=== PATIENT | female | born 1955 | race Caucasian/White ===

== ENCOUNTER 2020-02-19 09:25 | Observation (INO) | payer MEDICARE, BC ==
[~2020-02-19] VITALS: Ht 154.9 cm; Wt 48.2 kg
[~2020-02-19 09:25] MED LIST: AMOX1TAB11 PO; ASPI-482 PO; CETI10CA PO; CLOP75TA57 PO; INSU100V8 SQ; MYCO500V IV; TACR1CAP5 PO
[2020-02-19] MEDS ORDERED: IV NORMAL SALINE 1,000ML 1,000 ML IV ONE ×2 (09:45→12:15)
[2020-02-19 09:55] LABS: BASO # 0.1 x10^3/uL (0.0-0.2); BASO % 1 % (0-3); EOS # 0.2 x10^3/uL (0.0-0.7); EOS % 3 % (0-3); HEMATOCRIT 31.7 % (36.0-47.0); HEMOGLOBIN 10.4 g/dL (12.0-15.5); LYMPH # 0.7 x10^3/uL (1.0-4.8); LYMPH % 8 % (24-48); MEAN CORPUSCULAR HEMOGLOBIN 28 pg (25-35); MEAN CORPUSCULAR HGB CONC 33 g/dL (31-37); MEAN CORPUSCULAR VOLUME 86 fL (79-100); MONO % 12 % (0-9); NEUT # 6.8 x10^3uL (1.8-7.7); NEUT % 78 % (31-73); PLATELET COUNT 108 x10^3/uL (140-400); RED BLOOD COUNT 3.71 x10^6/uL (3.50-5.40); RED CELL DISTRIBUTION WIDTH 15.3 % (11.5-14.5); WHITE BLOOD COUNT 8.7 x10^3/uL (4.0-11.0)
[2020-02-19 10:05] LABS: ANION GAP 9 (6-14); BLOOD UREA NITROGEN 45 mg/dL (7-20); BUN/CREATININE RATIO 23 (6-20); CALCIUM 9.9 mg/dL (8.5-10.1); CARBON DIOXIDE 32 mmol/L (21-32); CHLORIDE 91 mmol/L (98-107); GLUCOSE 191 mg/dL (70-99); POTASSIUM 3.5 mmol/L (3.5-5.1); SODIUM 132 mmol/L (136-145)
[2020-02-19 10:21] LABS: ALBUMIN/GLOBULIN RATIO 0.7 (1.0-1.7); ALK PHOS 181 U/L (46-116); ALT (SGPT) 40 U/L (14-59); AST (SGOT) 42 U/L (15-37); MAGNESIUM 2.6 mg/dL (1.8-2.4); TOTAL BILIRUBIN 0.7 mg/dL (0.2-1.0); TOTAL PROTEIN 7.2 g/dL (6.4-8.2)
--- NOTE | 2020-02-19 10:23 | PHYS DOC ---
Past History Past Medical History: CAD, Diabetes, Other Past Medical History Limited secondary to altered mental status Past Surgical History: Coronary Bypass Surgery (triple), Tubal ligation, Other Additional Past Surgical Histo: Liver transplant, cardiac stents Past Surgical History Limited secondary to altered mental status Smoking: Non-smoker Alcohol Use: None Drug Use: None Social History Limited secondary to altered mental status General Adult EDM: Chief Complaint: BLOOD SUGAR PROBLEM HPI: HPI: 65-year-old female presents via EMS with report of altered mental status. EMS reports symptoms started last night when patient's blood sugar had been greater than 600s. Family reportedly was giving insulin throughout the night. Patient became more confused this morning and EMS was called. EMS reports Accu-Chek in the 400s. Patient also noted to be hypoxic upon EMS arrival down to 88% which improved after supplemental O2 placed at 4 L via nasal cannula. EMS denies known trauma. Family reports patient with history of liver transplant in 2001 and significant cardiac history with triple bypass surgery and prior 9 cardiac stents. Family reports patient has intermittent confusion for the last 4 to 5 months and has lost over 40 pounds during this period of time. Patient is scheduled to follow at for a lower GI scope on 02/27/2020. History of present illness limited secondary to altered mental status. Review of Systems: Review of Systems: Review of systems limited secondary to altered mental status. Current Medications: Current Meds: Current Medications Medications (Trade) Dose Ordered Sig/Melissa Start Time Stop Time Status Last Admin Dose Admin Sodium Chloride 1,000 ml @ 1,000 mls/hr 1X ONCE 02/19/20 09:45 02/19/20 10:44 02/19/20 09:45 1,000 MLS/HR Allergies: Allergies: Allergies Coded Allergies Type Severity Reaction Last Updated Verified No Known Drug Allergies 06/25/13 No Physical Exam: PE: Constitutional: Petite, obtunded HENT: Normocephalic, atraumatic Eyes: PERRL, conjunctiva normal, no discharge Neck: Supple, no stridor Lungs & Thorax: No respiratory distress, equal chest rise and fall Abdomen: Soft, no tenderness, no guarding/rebound tenderness/distention Skin: Warm, dry, no erythema, no rash Extremities: No tenderness, ROM intact, no edema Neurologic: Obtunded, GCS 9 (eye 2, verbal 2, motor 5) Psychologic: Limited, judgment abnormal Current Patient Data: Labs: Laboratory Tests Test 02/19/20 09:32 White Blood Count 8.7 x10^3/uL (4.0-11.0) Red Blood Count 3.71 x10^6/uL (3.50-5.40) Hemoglobin 10.4 g/dL (12.0-15.5) L Hematocrit 31.7 % (36.0-47.0) L Mean Corpuscular Volume 86 fL (79-100) Mean Corpuscular Hemoglobin 28 pg (25-35) Mean Corpuscular Hemoglobin Concent 33 g/dL (31-37) Red Cell Distribution Width 15.3 % (11.5-14.5) H Platelet Count 108 x10^3/uL (140-400) L Neutrophils (%) (Auto) 78 % (31-73) H Lymphocytes (%) (Auto) 8 % (24-48) L Monocytes (%) (Auto) 12 % (0-9) H Eosinophils (%) (Auto) 3 % (0-3) Basophils (%) (Auto) 1 % (0-3) Neutrophils # (Auto) 6.8 x10^3uL (1.8-7.7) Lymphocytes # (Auto) 0.7 x10^3/uL (1.0-4.8) L Monocytes # (Auto) 1.0 x10^3/uL (0.0-1.1) Eosinophils # (Auto) 0.2 x10^3/uL (0.0-0.7) Basophils # (Auto) 0.1 x10^3/uL (0.0-0.2) Sodium Level 132 mmol/L (136-145) L Potassium Level 3.5 mmol/L (3.5-5.1) Chloride Level 91 mmol/L (98-107) L Carbon Dioxide Level 32 mmol/L (21-32) Anion Gap 9 (6-14) Blood Urea Nitrogen 45 mg/dL (7-20) H Creatinine 2.0 mg/dL (0.6-1.0) H Estimated GFR (Cockcroft-Gault) 25.0 BUN/Creatinine Ratio 23 (6-20) H Glucose Level 191 mg/dL (70-99) H Lactic Acid Level 3.1 mmol/L (0.4-2.0) H Calcium Level 9.9 mg/dL (8.5-10.1) Magnesium Level Pending Total Bilirubin Pending Aspartate Amino Transferase (AST) Pending Alanine Aminotransferase (ALT) Pending Alkaline Phosphatase Pending Creatine Kinase Pending Creatine Kinase MB (Mass) Pending Creatine Kinase MB Relative Index Pending BK-Kzc-U-Type Natriuretic Peptide Pending Total Protein Pending Albumin Pending Albumin/Globulin Ratio Pending EKG: EKG: @1016 NSR at 61bpm, nonspecific t wave inversion I and aVL and V2-V3, slight ST elevation III and aVF, QRS 80ms, QT/QTc 462/467ms, no prior EKG for comparison per [facility] Radiology/Procedures: Radiology/Procedures: PROCEDURE: CT HEAD AND CERVICAL SPINE WO CT HEAD AND CERVICAL SPINE WO Date: 02/19/2020 9:34 AM Clinical Indication: Reason: altered mental status / Spl. Instructions: / History: Comparison: CT head 05/15/2012. Technique: 5 mm axial tomographic images were obtained of the head without contrast. These were viewed on brain and bone windows. CT imaging of the cervical spine was performed without contrast. Coronal and sagittal reformatted images were performed. One or more of the following dose reduction techniques were utilized: Automated exposure control (AEC), Adjustment of mA and/or kV according to patient size, Use of iterative reconstruction technique such as ASiR, CT scan done according to ALARA and image gently/image wisely HEAD FINDINGS: The brain parenchyma is normal in attenuation. No intra- or extra-axial mass or fluid collection. No acute hemorrhage. The ventricles are normal in size, shape, and morphology. The sosa-white matter junction is normal. The basilar cisterns are patent. The visualized paranasal sinuses are normal. The visualized portions of the orbits and globes are normal. The mastoid air cells are clear. No aggressive osseous lesion or fracture. CERVICAL SPINE FINDINGS: The cervical spine is normally aligned. No acute fracture. No aggressive lytic or blastic osseous lesion. Mild multilevel degenerative disc height loss. No high-grade spinal canal stenosis or neural foraminal narrowing. The thyroid gland is normal. No cervical lymphadenopathy. The visualized aerodigestive tract is unremarkable. The visualized lung apices are clear. IMPRESSION: 1. No acute intracranial process. 2. No acute osseous abnormality of the cervical spine. Electronically signed by: Tacos Monroy MD (02/19/2020 10:43 AM) [id number] PROCEDURE: CT CHEST WO CONTRAST CT CHEST WO CONTRAST INDICATION: Reason: hypoxia, weakness / Spl. Instructions: / History: . COMPARISON STUDY: None. TECHNIQUE: Unenhanced axial images were obtained through the lungs and upper abdomen. Coronal and sagittal multiplanar reconstructions were also obtained. PQRS compliance statement: One or more of the following individualized dose reduction techniques were utilized for this examination: 1. Automated exposure control 2. Adjustment of the mA and/or kV according to patient size 3. Use of iterative reconstruction technique FINDINGS: Lungs and Airways: No pulmonary mass or consolidation. Normal central airways. Pleura: The pleural spaces are normal. Heart and Mediastinum: The visualized thyroid gland is normal in size and attenuation. No axillary or supraclavicular lymphadenopathy. No mediastinal, hilar or retrocrural lymphadenopathy. Normal cardiac size. Extensive coronary artery atherosclerotic disease. CABG. Mitral annular calcification. Atherosclerosis of the thoracic aorta and branch vessels. Abdomen: The visualized abdominal organs demonstrate no abnormality. Bones and Soft Tissues: Degenerative changes of the spine. IMPRESSION: No pulmonary mass or consolidation. No thoracic lymphadenopathy. Electronically signed by: Tacos Monroy MD (02/19/2020 11:12 AM) [id number] Course & Med Decision Making: Course & Med Decision Making Pertinent Labs and Imaging studies reviewed. (See chart for details) Patient presents via EMS with altered mental status and history of hyperglycemia. Patient appears obtunded. Patient will arouse to painful stimuli then then immediately falls back to sleep. EMS reported hypoxia on their arrival which improved with supplemental O2. Patient also noted to be hypotensive. Concern for possible sepsis. IV fluid hydration provided. Blood pressure improved. Labs obtained and posted to chart. WBC and lactic acid within normal limits. SIRS criteria not met. EKG stable. Troponin within normal limits. Patient with history of liver transplant. Ammonia level within normal limits. D-dimer within normal limits. BUN/Creat elevated. CT head/cervical spine without acute process. CT chest without acute process. Cannot fully exclude COVID-19. COVID-[address] COVID-19 testing pending. Patient requiring admission for further evaluation and treatment. Discussed with Dr. Corbett (hospitalist) who is in agreement with admission. COVID-19 CRITERIA: The patient was evaluated during the global COVID-19 pandemic, and that diagnosis was suspected/considered upon their initial presentation. Their evaluation, treatment and testing was consistent with current guidelines for patients who present with complaints or symptoms that may be related to COVID-19. Ismael Disclaimer: Dragfidel Disclaimer: This electronic medical record was generated, in whole or in part, using a voice recognition dictation system. Departure Departure: Impression: Primary Impression: Altered mental status Qualified Codes: R41.82 - Altered mental status, unspecified Additional Impressions: Suspected 2019 novel coronavirus infection Lactic acidosis Acute renal insufficiency Hypotension Qualified Codes: I95.9 - Hypotension, unspecified Yeast cystitis Hypoxia Disposition: ADMITTED INPT THIS HOSP (ICU) Admitting Physician: Edgardo Corbett Condition: GUARDED Referrals: JUD SILVA MD (PCP) COVID-19 Assessment COVID-19 Patient Risks: Age 65 or older: Yes Sign of co-morbidity: Yes Exp to person + for COVID: No Exp to PUI: No Travel from affected area: No Lower respiratory symptoms: No Fever: No Other: Yes PPE Use: Full PPE with N95 mask or PAPR: Yes Critical Care Time Critical care time was 30 minutes which includes time at bedside, spent in discussion of patient's care with specialists and/or family members, with interpretation of laboratory and/or radiological studies and is exclusive of procedures. WINDY SINCLAIR DO Feb 19, 2020 10:23
--- NOTE | 2020-02-19 10:46 | RAD ---
CT HEAD AND CERVICAL SPINE WO Date: 02/19/2020 9:34 AM Clinical Indication: Reason: altered mental status / Spl. Instructions: / History: Comparison: CT head 05/15/2012. Technique: 5 mm axial tomographic images were obtained of the head without contrast. These were viewed on brain and bone windows. CT imaging of the cervical spine was performed without contrast. Coronal and sagittal reformatted images were performed. One or more of the following dose reduction techniques were utilized: Automated exposure control (AEC), Adjustment of mA and/or kV according to patient size, Use of iterative reconstruction technique such as ASiR, CT scan done according to ALARA and image gently/image wisely HEAD FINDINGS: The brain parenchyma is normal in attenuation. No intra- or extra-axial mass or fluid collection. No acute hemorrhage. The ventricles are normal in size, shape, and morphology. The sosa-white matter junction is normal. The basilar cisterns are patent. The visualized paranasal sinuses are normal. The visualized portions of the orbits and globes are normal. The mastoid air cells are clear. No aggressive osseous lesion or fracture. CERVICAL SPINE FINDINGS: The cervical spine is normally aligned. No acute fracture. No aggressive lytic or blastic osseous lesion. Mild multilevel degenerative disc height loss. No high-grade spinal canal stenosis or neural foraminal narrowing. The thyroid gland is normal. No cervical lymphadenopathy. The visualized aerodigestive tract is unremarkable. The visualized lung apices are clear. IMPRESSION: 1. No acute intracranial process. 2. No acute osseous abnormality of the cervical spine. Electronically signed by: Tacos Monroy MD (02/19/2020 10:43 AM) [id number]
--- NOTE | 2020-02-19 11:15 | RAD ---
CT CHEST WO CONTRAST INDICATION: Reason: hypoxia, weakness / Spl. Instructions: / History: . COMPARISON STUDY: None. TECHNIQUE: Unenhanced axial images were obtained through the lungs and upper abdomen. Coronal and sagittal multiplanar reconstructions were also obtained. PQRS compliance statement: One or more of the following individualized dose reduction techniques were utilized for this examination: 1. Automated exposure control 2. Adjustment of the mA and/or kV according to patient size 3. Use of iterative reconstruction technique FINDINGS: Lungs and Airways: No pulmonary mass or consolidation. Normal central airways. Pleura: The pleural spaces are normal. Heart and Mediastinum: The visualized thyroid gland is normal in size and attenuation. No axillary or supraclavicular lymphadenopathy. No mediastinal, hilar or retrocrural lymphadenopathy. Normal cardiac size. Extensive coronary artery atherosclerotic disease. CABG. Mitral annular calcification. Atherosclerosis of the thoracic aorta and branch vessels. Abdomen: The visualized abdominal organs demonstrate no abnormality. Bones and Soft Tissues: Degenerative changes of the spine. IMPRESSION: No pulmonary mass or consolidation. No thoracic lymphadenopathy. Electronically signed by: Tacos Monroy MD (02/19/2020 11:12 AM) [id number]
[2020-02-19 11:18] LABS: AMPHETAMINE/METHAMPHETAMINE NEG (NEG); BARBITURATES NEG (NEG); BENZODIAZEPINES NEG (NEG); CANNABINOIDS NEG (NEG); COCAINE NEG (NEG); METHADONE NEG (NEG); OPIATES NEG (NEG); PHENCYCLIDINE NEG (NEG)
[2020-02-19 11:34] LABS: BILIRUBIN,URINE NEG (NEG); CLARITY,URINE HAZY; COLOR,URINE YELLOW; GLUCOSE,URINE >=1000 mg/dL (NEG)
[2020-02-19 11:35] LABS: BACTERIA,URINE FEW /HPF (0-FEW); NITRITE,URINE NEG (NEG); SQUAMOUS EPITHELIAL CELL,UR FEW /LPF; UROBILINOGEN,URINE 0.2 mg/dL (0.2 mg/dL)
[2020-02-19 11:37] LABS: YEAST,URINE PRESENT /HPF
--- NOTE | 2020-02-19 11:53 | EKG ---
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
[2020-02-19] MEDS ORDERED: FLUCONAZOLE 100 MG TABLET. PO ONE ×2 (12:00→21:30)
[2020-02-19] MEDS ORDERED: ONDANSETRON PF 4 MG/2 ML VIAL. IVP PRN (12:15)
[2020-02-19] MEDS ORDERED: DEXTROSE 50% 25 GM / 50ML DISP.SYRIN. IV PRN (12:15)
[2020-02-19 20:05] VITALS: BP 92/63
--- NOTE | 2020-02-19 20:05 | NUR ---
Pt was admitted from ER to ICU bed 3 via gurney, accompanied by EMS and nursing staff. Pt pulled over from gurney to bed x3 assist. Pt turned and complete skin assessment completed, skin intact and no issues noted. Pt here for AMS, high lactic, RI, and pending Covid. Admission assessment completed. Pt is A&Ox3 but can be forgetful. Pt lives at home with (Matt) and he notes that pt has had an increase in AMS and high blood sugars (in the 600's). Pt is a type 1 diabetic and takes both short and long acting insulin but admits to not taking it the last few days. Pt has a GI scope scheduled at on 02/26 r/t recent weight lose. Plavix and SCDs for VTE. Pt wants flu vaccine but wants Covid results back before receiving. PT/OT, Dietary and CM consulted. POC reviewed with pt and understanding verbalized. - Matt called to go over health history and home medications, will need to call [facility] in morning to clarify medications because they contradicted each other on dose and frequency. Pt was given written information regarding hospital policies, unit procedures and contact persons. Valuables were checked and left at bedside. Bed alarm on.
[2020-02-19 21:00] VITALS: BP 132/56
[2020-02-19] MEDS: INSULIN LISPRO 300 UNITS/3 ML VIAL. SQ SCH (21:29)
[2020-02-19 22:36] VITALS: BP 136/56
[2020-02-19 23:00] VITALS: BP 150/70
[2020-02-20] VITALS (11 sets, daily range): BP systolic 121–160; BP diastolic 49–74
--- NOTE | 2020-02-20 05:10 | NUR ---
Pt doing much better this AM, slept good during night. Pt woke up with "clearer head" and feels that she is able to go home later today. Pt answering questions more appropriately but still use of all of her home medications. Pts stated that her blood sugars normally are in the mid-to upper 250's, which is what she has been running on our checks. Pt sat up on side of bed, watched TV while snacking on applesauce & crackers independently. Pt now on room air, O2 sats >94%. Tolerated AM labs. Hopeful for DC home later today.
[2020-02-20 06:20] LABS: BASO % 1 % (0-3); EOS # 0.2 x10^3/uL (0.0-0.7); EOS % 2 % (0-3); HEMATOCRIT 34.8 % (36.0-47.0); HEMOGLOBIN 11.3 g/dL (12.0-15.5); LYMPH # 0.8 x10^3/uL (1.0-4.8); LYMPH % 9 % (24-48); MEAN CORPUSCULAR HEMOGLOBIN 28 pg (25-35); MEAN CORPUSCULAR HGB CONC 33 g/dL (31-37); MEAN CORPUSCULAR VOLUME 87 fL (79-100); MONO # 0.5 x10^3/uL (0.0-1.1); MONO % 5 % (0-9); NEUT # 7.5 x10^3uL (1.8-7.7); NEUT % 84 % (31-73); PLATELET COUNT 128 x10^3/uL (140-400); RED BLOOD COUNT 3.99 x10^6/uL (3.50-5.40); RED CELL DISTRIBUTION WIDTH 16.1 % (11.5-14.5)
[2020-02-20 06:45] LABS: ALBUMIN 2.9 g/dL (3.4-5.0); ALBUMIN/GLOBULIN RATIO 0.7 (1.0-1.7); CALCIUM 9.1 mg/dL (8.5-10.1); CREATININE 1.9 mg/dL (0.6-1.0); GFR 26.5; MAGNESIUM 2.6 mg/dL (1.8-2.4); TOTAL BILIRUBIN 0.9 mg/dL (0.2-1.0); TOTAL PROTEIN 7.1 g/dL (6.4-8.2)
[2020-02-20] MEDS: INSULIN LISPRO 300 UNITS/3 ML VIAL. SQ SCH ×2 (09:15→12:14)
[2020-02-20] MEDS ORDERED: INSU100V31 SQ (09:57)
[2020-02-20] MEDS ORDERED: FURO40TA4 PO (09:57)
[2020-02-20] MEDS ORDERED: ERGO500027 PO (09:57)
[2020-02-20] MEDS ORDERED: METO5TAB55 PO (09:57)
[2020-02-20] MEDS ORDERED: DULO30CA2 PO (09:57)
[2020-02-20] MEDS ORDERED: PANT40TA3 PO (09:57)
[2020-02-20] MEDS ORDERED: ONDA4TAB12 PO (09:57)
[2020-02-20] MEDS ORDERED: TIZA4TAB8 PO (09:57)
[2020-02-20] MEDS ORDERED: PYRI50CA PO (09:57)
[2020-02-20] MEDS ORDERED: INSU100I32 SQ (09:57)
[2020-02-20] MEDS ORDERED: DOXE10CA PO (09:57)
[2020-02-20] MEDS ORDERED: PROP10TA PO (09:57)
[2020-02-20] MEDS ORDERED: LEVO88TA4 PO (09:57)
[2020-02-20] MEDS ORDERED: PRAV40TA2 PO (09:57)
[2020-02-20] MEDS ORDERED: CLOP75TA57 PO (10:39)
[2020-02-20] MEDS ORDERED: TACR1CAP5 PO (10:57)
--- NOTE | 2020-02-20 11:54 | HP ---
ADMIT DATE: 02/19/2020 ATTENDING PHYSICIAN: Dr. Mosquera CHIEF COMPLAINT: Altered mentation. HISTORY OF PRESENT ILLNESS: The patient is a 65-year-old female admitted from the ED, she was brought in by EMS personnel and her who stays with her reported she has been sick for the last 3 days. She is diabetic and she has a liver transplant. She has not been taking her insulin, her blood sugar is greater than 600. She was given some insulin throughout the night trying to play catch-up. Oxygen saturation was diminished. She had altered mentation, most likely on the basis of hepatic encephalopathy. In talking with the pharmacy, she was supposed to be taking Prograf 1.5 mg twice a day. Unfortunately, she has not got this filled the refill since 09/2019. I called her . He states that he does not fill her medication. She tells him that she has been taking her rejection meds. In any event, she was admitted for observation with a tentative diagnosis of hepatic encephalopathy. She has no recent COVID exposure. When I saw her the next morning, she was very alert. She gave a succinct history. She was asymptomatic and feeling better. PAST MEDICAL HISTORY: Significant for orthotopic liver transplant in 2001 in [place] at the [facility]. She had underlying diagnosis of primary biliary cirrhosis. She had recent temporal artery biopsy for temporal arteritis that has been ruled out. She has type 2 diabetes and hypothyroidism. She also has an extensive history of coronary artery disease with multiple stents and cardiac bypass surgery. She has had a tubal ligation. CURRENT MEDICATIONS: Include regular and a long-acting insulin, Rocaltrol, Zyrtec, vitamin B12, Sinequan at bedtime, Cymbalta, vitamin D2, estrogens, Lasix, Imdur, Synthroid 88 mcg daily, Bactroban, nitroglycerin, ondansetron, Protonix, Lyrica, Pravachol, B6, Prograf 1.5 b.i.d. and Zanaflex 2 mg every 6 hours as needed, Ventolin inhaler, Xifaxan 550 b.i.d. ALLERGIES: She has no known drug allergies. SOCIAL HISTORY: She is a nonsmoker, nondrinker at this time. FAMILY HISTORY: Unobtainable. REVIEW OF SYSTEMS: Significant for weight loss. She has had chronic nausea, poor appetite, 40-pound weight loss. She is scheduled to have upper and lower endoscopies through her transplant physician. Accordingly, she states that she has been taking her Prograf, but unfortunately we cannot verify this given the records from [facility] and her . He found a bottle of Prograf at home, but that was dated 2018. Continuing all other systems reviewed and turned to be negative. PHYSICAL EXAMINATION: VITAL SIGNS: By the time I saw her the next day, she was quite alert. She was up in a chair. She ate some breakfast. INITIAL VITAL SIGNS: Showed a blood pressure 130/57 mmHg, pulse 86 and regular, temperature 98.2 degrees Fahrenheit, oxygen saturation 98% on room air. HEENT: Head is without trauma. Pupils are reactive. I do not appreciate any scleral icterus. NECK: Supple. No thyromegaly. No stridor. LUNGS: Otherwise clear. CARDIOVASCULAR: Showed regular heart tones. No gallops. ABDOMEN: Soft, nontender, no organomegaly. Bowel sounds were hypoactive. EXTREMITIES: Showed no cyanosis or edema. NEUROLOGIC: She is alert. She gave succinct history. We had a normal conversation. There is no slurred speech. She appears informed. SKIN: Otherwise, warm and dry. LABORATORY STUDIES: Hemoglobin 11.3 g/dL, white count 9000. Electrolytes within normal range. Creatinine is 1.9 mg/dL. Her tells me that her baseline is between 2 and 2.5 mg/dL. IMAGING STUDIES: The obligatory CT of the head, cervical spine films showed no acute strokes, bleeds or fractures. CT of the chest showed no evidence of pneumonia. Heart size is within range. No acute infiltrates identified. ASSESSMENT: 1. A 65-year-old female with hepatic encephalopathy. 2. Questionable compliance of antirejection meds. 3. Known coronary artery disease. 4. Type 2 diabetes with poorly controlled blood sugar. 5. Noncompliance of insulin. 6. Probable polypharmacy. 7. History of orthotopic liver transplant in 2001 due to primary biliary cirrhosis. PLAN: 1. Observation status. 2. Insulin has been restarted. 3. Diet as tolerated. 4. We should continue her home meds including her Prograf. RADHA MOSQUERA MD DR: RED/aditi JOB#: [id number] / [id number]
--- NOTE | 2020-02-20 12:20 | DS ---
DATE OF DISCHARGE: 02/20/2020 ATTENDING PHYSICIAN: Dr. Mosquera FINAL DISCHARGE DIAGNOSES: 1. Probable hepatic encephalopathy, resolved. 2. Orthotopic liver transplant in 2001 for underlying primary biliary cirrhosis. 3. Known coronary artery disease with coronary artery bypass grafting and multiple cardiac stents. 4. Type 2 diabetes with poorly controlled sugars. 5. Altered mentation due to hepatic encephalopathy. 6. Questionable compliance of meds. 7. Hypoxemia, resolved. 8. History of weight loss in process of evaluation. 9. Chronic kidney disease, stage 3. HISTORY AND PHYSICAL: This is a 65-year-old female who had orthotopic liver transplant in 2001 for primary biliary cirrhosis. She was supposed to be taking her Prograf. Possible compliance pharmacy states that she has not had her meds filled in several months. She had altered mentation. According to the , this has been several episodes which usually resolves spontaneously. I noticed she had been on Xifaxan as part of her medications. She is not on any lactulose. The patient had a blood sugar over 600. She was admitted with uncontrolled diabetes, altered mentation due to hepatic encephalopathy. PHYSICAL EXAMINATION: Please see the dictated note. PERTINENT LABORATORY AND X-RAY STUDIES: She had the obligatory COVID swab, which is pending. She had no symptoms whatsoever. Her chest x-rays and CT scan of the chest was clear. CT of the head showed no acute changes. Hemoglobin was 11.3 grams, white count 9000. Chemistry panel showed improvement of her creatinine down to 1.9 mg/dL. Sodium 132, potassium 4.0 mEq. Urine drug screen was negative. Urinalysis is unremarkable. COURSE IN THE HOSPITAL: The patient was admitted. She was started on some of her home meds. She woke up, she was alert and we had a succinct conversation. Her vital signs were fine. She had no respiratory symptoms. I felt this is reasonable to go home. I talked with the regarding her medications. I did give her a script for Prograf 1 mg b.i.d. She is scheduled to have a panendoscopy through [facility] scheduled for 02/27/2020. She should proceed and complete the evaluation. Therefore, on the next hospital day, she was alert. Vital signs are stable. She is discharged home. She should continue her Prograf 1 mg b.i.d., aspirin 81 mg daily, Plavix 75 mg daily, Doxepin 10 mg at bedtime, Cymbalta 30 mg daily, Lasix 40 mg p.o. daily, insulin Lantus and regular as scheduled, Synthroid 88 mcg daily, Reglan p.r.n., ondansetron p.r.n., Protonix 40 mg b.i.d., pravastatin 40 mg daily, propranolol 10 mg b.i.d., vitamin B6 and finally Prograf 1 mg b.i.d. For now, I have asked her to hold Zanaflex due to her altered mentation history. She will follow up with her regular PCP as well as her liver specialist at [facility]. She was discharged then from our hospital in stable condition with explicit instructions and followup care. RADHA MOSQUERA MD DR: RED/aditi JOB#: [id number] / [id number] Bárbara Hobson MD
--- NOTE | 2020-02-20 13:00 | NUR ---
Patient provided discharge education including medication compliance, follow up appointments, and disease process. Patient expressed comprehension. Bourne catheter and PIVs removed, patient tolerated procedure well. Patient escorted to spouse's vehicle.
[2020-02-21] MEDS ORDERED: FLU VACC QS 2020-21(6MOS+)/PF 0.5 ML SYRINGE. VAX IM ONE (09:00)
--- NOTE | 2020-02-22 14:06 | NUR ---
IP: attempt to notify patient of COVID result, left message to call back.
--- NOTE | 2020-02-22 14:09 | NUR ---
IP: notified patient of COVID result.
== END 2020-02-20 13:10 | disposition home or self-care (01) ==
LOC: ER 09:25 → ICU 19:00 → INTOOBSV 19:00
PROVIDERS: ADMIT Internal Medicine; ATTEND Internal Medicine
DX: K72.90 Hepatic failure, unspecified without coma (principal); Z20.828 Contact with and (suspected) exposure to other viral communicable diseases; K74.3 Primary biliary cirrhosis; B37.41 Candidal cystitis and urethritis; I95.9 Hypotension, unspecified; R41.82 Altered mental status, unspecified; I25.10 Atherosclerotic heart disease of native coronary artery without angina pectoris; E11.22 Type 2 diabetes mellitus with diabetic chronic kidney disease; N18.30 Chronic kidney disease, stage 3 unspecified; E11.65 Type 2 diabetes mellitus with hyperglycemia; R09.02 Hypoxemia; E03.9 Hypothyroidism, unspecified; E87.2 Acidosis; Z91.19 Patient's noncompliance with other medical treatment and regimen; Z79.899 Other long term (current) drug therapy; Z94.4 Liver transplant status; Z95.5 Presence of coronary angioplasty implant and graft; Z95.1 Presence of aortocoronary bypass graft; Z98.51 Tubal ligation status; Z79.82 Long term (current) use of aspirin; Z79.02 Long term (current) use of antithrombotics/antiplatelets; Z79.890 Hormone replacement therapy
CPT/HCPCS: 36415; 70450; 71250; 72125; 80053; 80307; 81001; 82140; 82553; 82947; 83605; 83735; 83880; 84484; 85025; 85379; 85610; 85730; 87040; 93005; 96361; 96374; 97166; 97530; 99291; G0378; J1815; J2405; J7030; U0003; 96372; G0379

== ENCOUNTER 2020-03-25 15:04 | Emergency (ER) | payer MEDICARE, BC ==
[~2020-03-25] VITALS: Ht 154.9 cm; Wt 49.3 kg
[~2020-03-25 15:04] MED LIST changes: +DOXE10CA PO; +DULO30CA2 PO; +ERGO500027 PO; +FURO40TA4 PO; +INSU100I32 SQ; +INSU100V31 SQ; +LEVO88TA4 PO; +METO5TAB55 PO; +ONDA4TAB12 PO; +PANT40TA3 PO; +PRAV40TA2 PO; +PROP10TA PO; +PYRI50CA PO; +TIZA4TAB8 PO
--- NOTE | 2020-03-25 16:47 | PHYS DOC ---
Past History Past Medical History: CAD, Diabetes, Other Past Surgical History: Coronary Bypass Surgery, Tubal ligation, Other Additional Past Surgical Histo: Liver transplant, cardiac stents Smoking: Non-smoker Alcohol Use: None Drug Use: None General Adult EDM: Chief Complaint: MECHANICAL FALL HPI: HPI: Patient is a65 year old female who presents to ED with recent fall. Patient states that she got up at 2 am to go to the bathroom when she fell and hit her head. Patient denies LOC. Patient has abrasion and bruising to left anterior forehead. Patient fell again at 6 am and hurt her left ankle. Patient states "My legs get shaky and my legs go out from under me".Patient has been evaluated by PCP for this complaint without unknown cause.Denies dizziness. Patient takes ASA daily. History of DM, CAD, CABG. Review of Systems: Review of Systems: Constitutional: Denies fever or chills Eyes: Denies change in visual acuity HENT: Denies nasal congestion or sore throat, denies headache Respiratory: Denies cough or shortness of breath Cardiovascular: Denies chest pain or edema GI: Denies abdominal pain, nausea, vomiting, bloody stools or diarrhea : Denies dysuria Musculoskeletal: Denies back pain or joint pain Integument: abrasion to left frontal lobe Neurologic: Denies headache, reports tremor in her legs Endocrine: Denies polyuria or polydipsia Lymphatic: Denies swollen glands Psychiatric: Denies depression or anxiety Allergies: Allergies: Allergies Coded Allergies Type Severity Reaction Last Updated Verified No Known Drug Allergies 06/25/13 No Physical Exam: PE: Constitutional: Well developed, well nourished, no acute distress, non-toxic appearance. [] HENT: bruising to left anterior head, bilateral external ears normal, oropharynx moist, no oral exudates, nose normal. [] Eyes: PERRLA, EOMI, conjunctiva normal, no discharge. [] Neck: Normal range of motion, no tenderness, supple, no stridor. [] Cardiovascular:Heart rate regular rhythm, no murmur [] Lungs & Thorax: Bilateral breath sounds clear to auscultation [] Abdomen: Bowel sounds normal, soft, no tenderness, no masses, no pulsatile masses. [] Skin: Warm, dry, no erythema, no rash. [] Back: No tenderness, no CVA tenderness. [] Extremities: left ankle tenderness, ROM intact, some swelling to left ankle Neurologic: Alert and oriented X 3, normal motor function, normal sensory function, no focal deficits noted. [] Psychologic: Affect normal, judgement normal, mood normal. [] EKG: EKG: [] Radiology/Procedures: Radiology/Procedures: [] Heart Score: HEART Score for Chest Pain: HEART Score for Chest Pain Response (Comments) Value History Moderately Suspicious 1 ECG Normal 0 Age >45 - < 65 1 Risk Factors >3 Risk Factors or Hx CAD 2 Total 4 Risk Factors: Risk Factors: DM, Current or recent (<one month) smoker, HTN, HLP, family history of CAD, obesity. Risk Scores: Score 0 - 3: 2.5% MACE over next 6 weeks - Discharge Home Score 4 - 6: 20.3% MACE over next 6 weeks - Admit for Clinical Observation Score 7 - 10: 72.7% MACE over next 6 weeks - Early Invasive Strategies Course & Med Decision Making: Course & Med Decision Making Pertinent Labs and Imaging studies reviewed. (See chart for details) []Patient is a65 year old female who presents to ED with recent fall. Patient states that she got up at 2 am to go to the bathroom when she fell and hit her head. Patient denies LOC. Patient has abrasion and bruising to left anterior forehead. Patient fell again at 6 am and hurt her left ankle. Patient states "My legs get shaky and my legs go out from under me".Patient has been evaluated by PCP for this complaint without known cause.Denies dizziness. Patient takes ASA daily. EKG negative for abdnormalities. CT Head negative for skull fracture or intercracial hemorrhage. Denies midline tenderness. Heart score of 4. BS 523, lab negative for DKA.Patient to take insulin at home per sliding scale. Ankle brace, morphine and zofran given for pain prior to discharge. Patient is hemodynamically stable upon discharge and vitals are within normal limits. Dragon Disclaimer: Ismael Disclaimer: This electronic medical record was generated, in whole or in part, using a voice recognition dictation system. Departure Departure: Impression: Primary Impression: Falls Qualified Codes: W19.XXXA - Unspecified fall, initial encounter Disposition: 01 DC HOME SELF CARE/HOMELESS Condition: GOOD Referrals: JUD SILVA MD (PCP) Patient Instructions: Fall Prevention and Home Safety, [id number] Additional Instructions: You were seen in the ER today for fall last night. Your CT of you head was negative for skull fracture or intracranial bleeding. Your ankle xray was n egative for fracture. Continue to wear the ankle brace provided in the ED. Use Tylenol and Ibuprofen for discomfort as needed. Rest, ICE, Elevate and ankle brace to help with pain and swelling. Please return to the ED with further concerns or worsening condition. Otherwise, please follow up with PCP for further management. EMERGENCY DEPARTMENT GENERAL DISCHARGE INSTRUCTIONS Thank you for coming to [facility] (ED) today and trusting us with you care. We trust that you had a positivie experience in our Emergency Department. If you wish to speak to the department management, you may call the director at [phone]. YOUR FOLLOW UP INSTRUCTIONS ARE FOLLOWS: 1. Do you have a private Doctor? If you do not have a private doctor, please ask for a resource list of physicians or clinics that may be able to assist you with follow up care. 2. The Emergency Physician has interpreted your x-rays. The X-Ray specialist will also review them. If there is a change in the findings, you will be notified in 48 hours when at all possible. 3. A lab test or culture has been done, your results will be reviewed and you will be notified if you need a change in treatment. ADDITIONAL INSTRUCTIONS AND INFORMATION: 1. Your care today has been supervised by a physician who is specially trained in emergency care. Many problems require more than one evaluation for a complete diagnosis and treatment. We recommend that you schedule your follow up appointment as recommended to ensure complete treatment of you illness or injury. If you are unable to obtain follow up care and continue to have a problem, or if your condition worsens, we recommend that you return to the ED. 2. We are not able to safely determine your condition over the phone nor are we able to give sound medical advice over the phone. For these safety reasons, if you call for medical advice we will ask you to come to the ED for further evaluation. 3. If you have any questions regarding these discharge instructions please call the ED at [phone]. SAFETY INFORMATION: In the interest of safety, wellness, and injury prevention; we encourage you to wear your sealbelt, if you smoke; quite smoking, and we encourage family to use a protective helmet for bicycling and other sporting events that present an increased risk for head injury. IF YOUR SYMPTOMS WORSEN OR NEW SYMPTOMS DEVELOP, OR YOU HAVE CONCERNS ABOUT YOUR CONDITION; OR IF YOUR CONDITION WORSENS WHILE YOU ARE WAITING FOR YOUR FOLLOW UP APPOINTMENT; EITHER CONTACT YOUR PRIMARY CARE DOCTOR, THE PHYSICIAN WHOSE NAME AND NUMBER YOU WERE GIVEN, OR RETURN TO THE ED IMMEDIATELY. SHARLA HAIRSTON APRN Mar 25, 2020 16:46
[2020-03-25 16:53] LABS: BASO % 0 % (0-3); EOS # 0.1 x10^3/uL (0.0-0.7); EOS % 1 % (0-3); HEMATOCRIT 33.4 % (36.0-47.0); HEMOGLOBIN 10.9 g/dL (12.0-15.5); LYMPH # 0.7 x10^3/uL (1.0-4.8); LYMPH % 8 % (24-48); MEAN CORPUSCULAR HEMOGLOBIN 28 pg (25-35); MEAN CORPUSCULAR HGB CONC 33 g/dL (31-37); MEAN CORPUSCULAR VOLUME 87 fL (79-100); MONO # 0.8 x10^3/uL (0.0-1.1); MONO % 9 % (0-9); NEUT % 82 % (31-73); PLATELET COUNT 130 x10^3/uL (140-400); RED BLOOD COUNT 3.86 x10^6/uL (3.50-5.40); RED CELL DISTRIBUTION WIDTH 15.9 % (11.5-14.5); WHITE BLOOD COUNT 8.6 x10^3/uL (4.0-11.0)
--- NOTE | 2020-03-25 17:04 | RAD ---
EXAMINATION: CT HEAD/BRAIN WO (CT HEAD WITHOUT IV CONTRAST) CLINICAL HISTORY: Fall with left forehead laceration TECHNIQUE: Serial axial images without IV contrast were obtained from the vertex to the foramen magnu m. CT Dose Reduction Employed: One or more of the following individualized dose reduction techniques wer e utilized for this examination: 1. Automated exposure control 2. Adjustment of the mA and/or kV ac cording to patient size 3. Use of iterative reconstruction technique. COMPARISON: 02/19/2020 FINDINGS: Acute Change: Minimal subcutaneous edema along the left inferior frontal scalp. No evidence of an acu te contusion or other acute parenchymal process. Hemorrhage: No evidence of acute intracranial hemorrhage. Mass Lesion/Mass Effect: No evidence of intracranial mass or extraaxial fluid collection. No signific ant mass effect. Chronic Change: None apparent. Atherosclerotic calcification of the anterior and posterior circulatio n. Parenchyma: No significant volume loss. Parenchyma otherwise within normal limits for age. Ventricles: Ventricles within normal limits for age. Paranasal Sinuses and Skull Base: Visualized paranasal sinuses clear. No evidence of acute calvarial fracture. IMPRESSION: No evidence of acute intracranial abnormality or significant interval change. Electronically signed by: Clifton Posadas DO (03/25/2020 5:01 PM) [id number]
--- NOTE | 2020-03-25 17:06 | RAD ---
XR EXAM OF ANKLE_LEFT 3V History: Reason: fall, L ankle pain / Spl. Instructions: / History: Technique: 3 views left ankle. Comparison: None. Findings: Normal alignment. Symmetric ankle mortise. Linear calcination adjacent to the lateral midfoot on AP v iew. Lateral ankle soft tissue swelling. Vascular calcifications. Plantar calcaneal spur. Impression: 1. Linear calcifications projecting adjacent to the lateral mid foot on AP view, may represent hyper trophic changes although avulsion fracture is possible. Recommend correlation with point tenderness t o evaluate acuity. 2. Lateral ankle soft tissue swelling. Electronically signed by: Clay Bergeron DO (03/25/2020 5:04 PM) [facility]
[2020-03-25 17:32] LABS: ALBUMIN/GLOBULIN RATIO 0.7 (1.0-1.7); CALCIUM 8.8 mg/dL (8.5-10.1); CREATININE 2.4 mg/dL (0.6-1.0); GFR 20.3; POTASSIUM 4.8 mmol/L (3.5-5.1); TOTAL BILIRUBIN 0.9 mg/dL (0.2-1.0); TOTAL PROTEIN 7.1 g/dL (6.4-8.2)
[2020-03-25 17:52] VITALS: BP 143/89
[2020-03-25] MEDS ORDERED: IV NORMAL SALINE 1,000ML 1,000 ML IV ONE (18:00)
[2020-03-25] MEDS ORDERED: INSULIN REGULAR 100 UNIT/ML 3ML VIAL. IV ONE (18:00)
[2020-03-25] MEDS ORDERED: ONDANSETRON PF 4 MG/2 ML VIAL. IVP ONE (18:00)
[2020-03-25] MEDS ORDERED: MORPHINE SULFATE 4 MG/ML DISP.SYRIN. IV ONE (18:00)
== END 2020-03-25 18:25 | disposition home or self-care (01) ==
LOC: ER 15:04
DX: S00.83XA Contusion of other part of head, initial encounter (principal); M25.572 Pain in left ankle and joints of left foot; R22.42 Localized swelling, mass and lump, left lower limb; I25.810 Atherosclerosis of coronary artery bypass graft(s) without angina pectoris; E11.9 Type 2 diabetes mellitus without complications; W18.39XA Other fall on same level, initial encounter; Y93.89 Activity, other specified; Y92.89 Other specified places as the place of occurrence of the external cause; Y99.8 Other external cause status
CPT/HCPCS: 36415; 70450; 73610; 80053; 85025; 96374; 96375; 99285; J2270; J2405

== ENCOUNTER → 2020-04-07 | Outpatient (CLI) | payer MEDICARE, BC ==
[2020-03-25 17:52] VITALS: BP 143/89
[2020-04-07 11:55] LABS: ALBUMIN 4.4 g/dL (3.4-5.0); ALBUMIN/GLOBULIN RATIO 1.3 (1.0-1.7); CALCIUM 9.5 mg/dL (8.5-10.1); CREATININE 1.5 mg/dL (0.6-1.0); GFR 34.9; POTASSIUM 4.6 mmol/L (3.5-5.1); TOTAL BILIRUBIN 0.7 mg/dL (0.2-1.0); TOTAL PROTEIN 7.8 g/dL (6.4-8.2)
[2020-04-08 07:14] LABS: HEMOGLOBIN A1C 10.5 % (4.8-5.6)
== END ==
LOC: LAB 11:27
PROVIDERS: ATTEND Internal Medicine Gastroenterology
DX: K72.90 Hepatic failure, unspecified without coma (principal); E11.9 Type 2 diabetes mellitus without complications
CPT/HCPCS: 36415; 80053; 80197; 83036

== ENCOUNTER 2021-04-11 06:03 | Emergency (ER) | payer MEDICARE, BC ==
[~2021-04-11] VITALS: Ht 154.9 cm; Wt 49.3 kg
[~2021-04-11 06:03] MED LIST changes: -ERGO500027 PO; +ERGO500090 PO
[2021-04-11] MEDS ORDERED: OXYMETAZOLINE 0.05% NASAL SPRAY 30ML BOTTLE. NS ONE ×2 (06:06→07:00)
--- NOTE | 2021-04-11 06:10 | PHYS DOC ---
Past History Past Medical History: Anemia, CAD, Diabetes (ISHAN BLAND MD) Past Surgical History: Coronary Bypass Surgery, Tubal ligation, Other Additional Past Surgical Histo: LIVER TRANSPLANT (ISHAN BLAND MD) Smoking: Non-smoker Alcohol Use: None Drug Use: None (ISHAN BLAND MD) General Adult HPI: HPI: "..I got a nose bled... that does not want to stop...".. "I just woke up with it..." I ve had them before... ".. " I even had surgery... ".. and I see a ENT..."... " I am also worried I got pneumonia... ".. I" I got this cough..." I seen Marilyn the other day... ." " My hemoglobin was 8.6.... but they said it was not low enough to transfuse yet..." Patient is a 66 year old female who presents with above hx and complaints of epistaxis.. Patient also complaining of chronic cough for last few days. Patient concerned she has pneumonia. Patient has had COVID vaccination x3. And flu vaccination. Has been at other group settings have a recently exposed to other individuals at had coughs. Patient denies any recent travel. Patient has history of chronic anemia and has occasionally received transfusions. Patient states her last hemoglobin was 8.6 but was not low enough at that time to transfuse. Patient normally follows with Dr. Sanders. Patient has had an ENT in the past but currently the group is hiring another ENT. Patient is currently seeing the nurse practitioner in the ENT office. Patient does take a daily aspirin. (ISHAN BLAND MD) Review of Systems: Review of Systems: Constitutional: Denies fever or chills Eyes: Denies change in visual acuity HENT: Complains of nasal congestion and epistaxis Respiratory: Complains of cough Cardiovascular: Denies chest pain or edema GI: Denies abdominal pain, nausea, vomiting, bloody stools or diarrhea : Denies dysuria Musculoskeletal: Denies back pain or joint pain Integument: Denies rash Neurologic: Denies headache, focal weakness or sensory changes Endocrine: Denies polyuria or polydipsia Lymphatic: Denies swollen glands Psychiatric: Denies depression or anxiety (ISHAN BLAND MD) Family History: Family History: Noncontributory to presentation (ISHAN BLAND MD) Current Medications: Current Meds: Current Medications Medications (Trade) Dose Ordered Sig/Melissa Start Time Stop Time Status Last Admin Dose Admin Oxymetazoline HCl (Afrin) 100 spray STK-MED ONCE 04/11/21 06:06 04/11/21 06:07 DC (ISHAN BLAND MD) Allergies: Allergies: Allergies Coded Allergies Type Severity Reaction Last Updated Verified No Known Drug Allergies 06/25/13 No (ISHAN BLAND MD) Physical Exam: PE: Constitutional: Moderate acute distress, non-toxic appearance. [] HENT: Normocephalic, atraumatic, bilateral external ears normal, oropharynx moist, no oral exudates, nose swollen turbinates. Bleeding from [place] are a left side. Some blood testing down posterior pharynx. Poor dentition Eyes: PERRLA, EOMI, conjunctiva pale, no discharge. [] Neck: Normal range of motion, no tenderness, supple, no stridor. [] Cardiovascular: Tachycardia heart rate regular rhythm, no murmur [] Lungs & Thorax: Bilateral breath sounds are apex with few scattered wheezes on auscultation [] Abdomen: Bowel sounds normal, soft, no tenderness, no masses, no pulsatile masses. Scar Skin: Warm, dry, no erythema, no rash. Pale. No petechiae Back: No tenderness, no CVA tenderness. [] Extremities: No tenderness, no cyanosis, no clubbing, ROM intact, bilateral knee edema. Thready changes. Neurologic: Alert and oriented X 3, normal motor function, normal sensory function, no focal deficits noted. [] Psychologic: Affect anxious, judgement normal, mood normal. [] (ISHAN BLAND MD) EKG: EKG: [] (ISHAN BLAND MD) Radiology/Procedures: Radiology/Procedures: [] (ISHAN BLAND MD) Heart Score: C/O Chest Pain: N/A Risk Factors: Risk Factors: DM, Current or recent (<one month) smoker, HTN, HLP, family history of CAD, obesity. Risk Scores: Score 0 - 3: 2.5% MACE over next 6 weeks - Discharge Home Score 4 - 6: 20.3% MACE over next 6 weeks - Admit for Clinical Observation Score 7 - 10: 72.7% MACE over next 6 weeks - Early Invasive Strategies (ISHAN BLAND MD) Course & Med Decision Making: Course & Med Decision Making Pertinent Labs and Imaging studies reviewed. (See chart for details) Endorsed to at shift change. Awaiting labs at shift change. Treatment epistaxis-clots cleared by blowing. 50-50 application of cocaine and Afrin spray to both naris. Application of Bactracin ointment. Compression applied. Initially appeared to have adequate hemostasis. Patient advised to hold aspirin for 3 days. CBC and platelets pending at shift change. Pt. instructed to not blow nose for next couple days. May sniff. [] Impression: 1. Epistaxis 2. History of anemia-normocytic hemoglobin 9.5 3. Mild thrombocytopenia 121 4. Renal insufficiency-BUN 38 creatinine 2.1 5. Malnutrition albumin 2.6 (ISHAN BLAND MD) Course & Med Decision Making The patient's bleeding has stopped. Her hemoglobin is 9.5. This is somewhat decreased from a year ago at 10.9. Patient has anemia at baseline. She is being treated for this. I have advised the patient not to take her aspirin for the next 3 days. Her creatinine is 2.1 and the most recent lab is over a year old at 1.5. Her chart history shows elevated creatinines previously. She will need to follow this up with her primary physician and the specialist she already sees. She is stable for discharge at this time. (SARAH CARVALHO DO) Dragon Disclaimer: Dragon Disclaimer: This electronic medical record was generated, in whole or in part, using a voice recognition dictation system. (ISHAN BLAND MD) Departure Departure: Impression: Primary Impression: Epistaxis Disposition: HOME / SELF CARE / HOMELESS Condition: STABLE Referrals: DEEPTI SOL (PCP) Patient Instructions: Nosebleed, [id number] Dragon Disclaimer This chart was dictated in whole or in part using Voice Recognition software in a busy, high-work load, and often noisy Emergency Department environment. It m ay contain unintended and wholly unrecognized errors or omissions. (ISHAN BLAND MD) ISHAN BLAND MD Apr 11, 2021 06:10 SARAH CARVALHO DO Apr 11, 2021 08:53
[2021-04-11] MEDS ORDERED: cloNIDine TTS-2 1 PATCH PATCH TD ONE ×2 (06:28→07:00)
[2021-04-11] MEDS ORDERED: cloNIDine HCL 0.1 MG TABLET ONE (06:28)
[2021-04-11] MEDS ORDERED: cloNIDine HCL 0.1 MG TABLET PO ONE (07:00)
[2021-04-11] MEDS ORDERED: PHENYLEPHRINE 1% NASAL DROP 30ML BOTTLE. NS ONE (07:00)
[2021-04-11] MEDS ORDERED: COCAINE 4% TOPICAL SOLUTION. TP ONE (07:00)
[2021-04-11] MEDS ORDERED: cloNIDine TTS-1 1 PATCH PATCH TD ONE (07:00)
[2021-04-11] MEDS ORDERED: MUPIROCIN 2% TOPICAL OINTMENT 22GM TUBE. TP ONE (07:00)
--- NOTE | 2021-04-11 07:17 | RAD ---
EXAM: XR CHEST 2V 04/11/2021 7:04 AM CLINICAL INDICATION: Cough, nosebleed COMPARISON: Chest radiograph 05/15/2012 TECHNIQUE: PA and lateral views of the chest FINDINGS: Heart is normal in size. There are changes of median sternotomy. Coronary artery stents ar e noted. Lungs are normally expanded. No consolidation, pleural effusion, or pneumothorax. No pulmona ry edema. No acute osseous abnormality. IMPRESSION: No acute cardiopulmonary abnormality. Electronically signed by: Pham Diallo MD (04/11/2021 7:14 AM) [id number]
[2021-04-11 07:38] LABS: INFLUENZA A PATIENT NEGATIVE (NEGATIVE); INFLUENZA B PATIENT NEGATIVE (NEGATIVE)
[2021-04-11 08:07] LABS: HEMATOCRIT 30.4 % (36.0-47.0); HEMOGLOBIN 9.5 g/dL (12.0-15.5); RED BLOOD COUNT 3.49 x10^6/uL (3.50-5.40); WHITE BLOOD COUNT 4.7 x10^3/uL (4.0-11.0)
[2021-04-11 08:21] LABS: CALCIUM 8.7 mg/dL (8.5-10.1); CREATININE 2.1 mg/dL (0.6-1.0); GFR 23.6; POTASSIUM 3.7 mmol/L (3.5-5.1)
[2021-04-11 08:27] LABS: ALBUMIN 2.6 g/dL (3.4-5.0); ALBUMIN/GLOBULIN RATIO 0.6 (1.0-1.7); TOTAL BILIRUBIN 1.1 mg/dL (0.2-1.0)
[2021-04-11 09:01] VITALS: BP 143/70
== END 2021-04-11 09:01 | disposition home or self-care (01) ==
LOC: ER 06:03
DX: R04.0 Epistaxis (principal); D69.6 Thrombocytopenia, unspecified; N28.9 Disorder of kidney and ureter, unspecified; E46 Unspecified protein-calorie malnutrition; E11.9 Type 2 diabetes mellitus without complications; I25.810 Atherosclerosis of coronary artery bypass graft(s) without angina pectoris; Z68.20 Body mass index [BMI] 20.0-20.9, adult; Z86.2 Personal history of diseases of the blood and blood-forming organs and certain disorders involving the immune mechanism
CPT/HCPCS: 36415; 71046; 80053; 85027; 85045; 85610; 85730; 87428; 99284

== ENCOUNTER 2021-04-13 16:08 | Emergency (ER) | payer MEDICARE, BC ==
[~2021-04-13] VITALS: Ht 154.9 cm; Wt 55.8 kg
[2021-04-13] MEDS ORDERED: OXYMETAZOLINE 0.05% NASAL SPRAY 30ML BOTTLE. NS ONE (17:15)
[2021-04-13] MEDS ORDERED: TRANEXAMIC ACID 1,000 MG/10 ML VIAL. TOP ONE (18:45)
--- NOTE | 2021-04-13 19:47 | PHYS DOC ---
Past History Past Medical History: Anemia, CAD, Diabetes, Renal Failure Past Surgical History: Coronary Bypass Surgery, Other Additional Past Surgical Histo: LIVER TRANSPLANT, TRIPLE BYPASS, CARDIAC STENTS Smoking: Quit Greater Than 1 Year Alcohol Use: None Drug Use: None General Adult EDM: Chief Complaint: NOSEBLEED HPI: HPI: 66-year-old female presents with report of epistaxis primarily from left nare which began approximately 30 minutes prior to arrival. Patient had a similar episode approximately 2 days ago and was evaluated and treated in the emergency department. Labs at that time had been stable. Patient does report some associated dizziness. Reports having some drainage from her lower eyelids that is bloody in nature. Patient denies any pain. Denies known trauma. Patient reports bleeding started after she "sneezed ". Review of Systems: Review of Systems: Constitutional: Denies fever or chills Eyes: Denies redness or eye pain; reports bloody discharge from lower eyelids HENT: Reports epistaxis Respiratory: Denies cough or shortness of breath Cardiovascular: Denies chest pain or palpitations GI: Denies abdominal pain, nausea, or vomiting Integument: Denies rash or skin lesions Neurologic: Denies headache, focal weakness or sensory changes; reports dizziness Complete systems were reviewed and found to be within normal limits, except as documented in this note. Current Medications: Current Meds: Current Medications Medications (Trade) Dose Ordered Sig/Melissa Start Time Stop Time Status Last Admin Dose Admin Oxymetazoline HCl (Afrin) 2 spray 1X ONCE 04/13/21 17:15 04/13/21 17:16 DC 04/13/21 17:42 2 SPRAY Tranexamic Acid (Cyklokapron) 1,000 mg 1X ONCE 04/13/21 18:45 04/13/21 18:52 DC 04/13/21 19:17 1,000 MG Allergies: Allergies: Allergies Coded Allergies Type Severity Reaction Last Updated Verified [id number] Reductase Inhibitor Allergy Unknown 04/13/21 Yes azithromycin Allergy Unknown 04/13/21 Yes Physical Exam: PE: Constitutional: Well developed, well nourished, no acute distress, non-toxic appearance HENT: Normocephalic, atraumatic, clots noted to bilateral naris- left greater than right Eyes: PERRL, EOMI, conjunctiva normal, clear bloody discharge noted from bilateral lower eyelids Neck: Normal range of motion, supple Lungs & Thorax: No respiratory distress, equal chest rise and fall Skin: Warm, dry, no erythema, no rash Extremities: No tenderness, ROM intact, no edema Neurologic: Alert and oriented X 3, no focal deficits noted Psychologic: Affect normal, judgment normal Current Patient Data: Vital Signs: Vital Signs Date Time Temp Pulse Resp B/P (MAP) Pulse Ox O2 Delivery O2 Flow Rate FiO2 04/13/21 16:40 97.6 63 20 137/44 (75) 95 Room Air EKG: EKG: [] Radiology/Procedures: Radiology/Procedures: [] Heart Score: C/O Chest Pain: N/A Course & Med Decision Making: Course & Med Decision Making Patient presents with epistaxis that started 30 minutes prior to arrival after sneezing. History of recent evaluation in the ER for same 2 days ago. Patient previously controlled with cocaine and Afrin. Attempted to control with Afrin spray and nasal clamp without success. TXA therefore atomized and clamping continued. Patient with interval resolution of epistaxis. Advised patient to use [place] nasal spray as well as bedside humidifier. Patient stable for discharge with outpatient follow-up with PCP. Discussed findings and plan with patient and family, who acknowledge understanding and agreement. Ismael Disclaimer: Gogofidel Disclaimer: This electronic medical record was generated, in whole or in part, using a voice recognition dictation system. Additional Procedures Progress Epistaxis control Verbal consent obtained. Time out performed. Hand hygiene utilized. Patient able to self extricate blood clots from bilateral naris with blowing nose. 2 puffs of Afrin utilized to bilateral nares. A nasal clamp utilized and in place for 15 minutes. Nasal clamp removed with continued bleeding noted from left nare. Additional Afrin sprays utilized with re-administration of nasal clamp for next 15 minutes. Patient noted to have continued blood clot to left nare. Decision to switch to TXA. Blood clots again self extricated with atomization of TXA. Nasal clamp applied for next 15 minutes. Patient with interval resolution of bleeding. Patient tolerated procedure well and without difficulty. Departure Departure: Impression: Primary Impression: Epistaxis Disposition: HOME / SELF CARE / HOMELESS Condition: IMPROVED Referrals: DEEPTI SOL (PCP) Patient Instructions: Nosebleed, [id number] Additional Instructions: Use bedside humidifier at night. Use [id number] Wanchese nasal spray at least 3 times daily to continue to moisturize the nasal passages. If bleeding reoccurs: 1) below all nasal clots out, use [id number] Afrin 2 sprays to each nostril then applied nasal clamp for 15 minutes. 2) remove nasal clamp. If bleeding persists repeat step 1. 3) remove nasal clamp. If bleeding persists repeat step 1 again. 4) remove nasal clamp. If bleeding persists then present to emergency department for further evaluation and treatment. WINDY SINCLAIR DO Apr 13, 2021 19:47
[2021-04-13 19:50] VITALS: BP 128/62
== END 2021-04-13 19:52 | disposition home or self-care (01) ==
LOC: ER 16:08
DX: R04.0 Epistaxis (principal); E11.22 Type 2 diabetes mellitus with diabetic chronic kidney disease; N18.9 Chronic kidney disease, unspecified; I25.10 Atherosclerotic heart disease of native coronary artery without angina pectoris; Z95.1 Presence of aortocoronary bypass graft; Z95.5 Presence of coronary angioplasty implant and graft; Z87.891 Personal history of nicotine dependence; Z88.1 Allergy status to other antibiotic agents
CPT/HCPCS: 99283

== ENCOUNTER 2021-04-20 13:10 | Emergency (ER) | payer MEDICARE, BC ==
[~2021-04-20] VITALS: Ht 154.9 cm; Wt 55.8 kg
[2021-04-20] VITALS (17 sets, daily range): BP systolic 99–140; BP diastolic 47–85
[2021-04-20 13:58] LABS: CALCIUM 8.3 mg/dL (8.5-10.1); CREATININE 3.2 mg/dL (0.6-1.0); GFR 14.5
[2021-04-20 14:01] LABS: BASO # 0.1 x10^3/uL (0.0-0.2); BASO % 1 % (0-3); EOS # 0.3 x10^3/uL (0.0-0.7); EOS % 6 % (0-3); HEMOGLOBIN 7.7 g/dL (12.0-15.5); LYMPH # 0.7 x10^3/uL (1.0-4.8); LYMPH % 11 % (24-48); MEAN CORPUSCULAR HEMOGLOBIN 27 pg (25-35); MEAN CORPUSCULAR HGB CONC 31 g/dL (31-37); MEAN CORPUSCULAR VOLUME 88 fL (79-100); MONO # 0.4 x10^3/uL (0.0-1.1); MONO % 6 % (0-9); NEUT # 4.5 x10^3uL (1.8-7.7); NEUT % 76 % (31-73); PLATELET COUNT 177 x10^3/uL (140-400); RED BLOOD COUNT 2.86 x10^6/uL (3.50-5.40); WHITE BLOOD COUNT 5.9 x10^3/uL (4.0-11.0)
[2021-04-20 14:04] LABS: ALBUMIN 2.8 g/dL (3.4-5.0); ALBUMIN/GLOBULIN RATIO 0.7 (1.0-1.7); TOTAL BILIRUBIN 0.8 mg/dL (0.2-1.0); TOTAL PROTEIN 6.7 g/dL (6.4-8.2)
[2021-04-20] MEDS ORDERED: IV RINGERS SOLUTION,LACTATED 1,000 ML IV ONE (14:15)
--- NOTE | 2021-04-20 14:32 | PHYS DOC ---
Past History Past Medical History: Anemia, CAD, Diabetes, Immunosuppression, Liver Disease, Renal Failure (AIXA MALAVE) Past Surgical History: Coronary Bypass Surgery, Other Additional Past Surgical Histo: LIVER TRANSPLANT, TRIPLE BYPASS, CARDIAC STENTS (AIXA MALAVE) Smoking: Quit Greater Than 1 Year Alcohol Use: None Drug Use: None (AIXA MALAVE) General Adult EDM: Chief Complaint: ABNORMAL LABS HPI: HPI: Patient is a 66-year-old female with history of anemia requiring transfusion and frequent epistaxis who presents today for abnormal lab result. 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 She does report associated lightheadedness and weakness, which was the reason for the lab draws. Patient was seen here in the emergency department twice in 3 days about a week and a half ago for recurrent epistaxis, which was well controlled on each visit. She reports bright red blood per rectum after her nosebleeds, which stopped yesterday. (AIXA MALAVE) Review of Systems: Review of Systems: Constitutional: Denies fever, chills; reports generalized weakness Eyes: Denies change in visual acuity, visual field deficits or discharge HENT: Denies ear pain, nasal congestion or sore throat Respiratory: Denies cough or shortness of breath Cardiovascular: Denies chest pain, palpitations or edema GI: Denies abdominal pain, nausea, vomiting; reports bloody stools : Denies dysuria or hematuria Musculoskeletal: Denies back pain or joint pain Integument: Denies rash or other skin lesion Neurologic: Denies headache, focal weakness or sensory changes; reports lightheadedness (AIXA MALAVE) Current Medications: Current Meds: Current Medications Medications (Trade) Dose Ordered Sig/Melissa Route PRN Reason Start Time Stop Time Status Last Admin Dose Admin Lactated Ringer's 1,000 ml @ 1,000 mls/hr 1X ONCE IV 04/20/21 14:15 04/20/21 15:14 DC 04/20/21 14:15 Diphenhydramine HCl (Benadryl) 50 mg 1X ONCE IVP 04/20/21 17:15 04/20/21 17:18 DC 04/20/21 17:17 Acetaminophen/ Hydrocodone Bitart (Lortab 5/325) 1 tab 1X ONCE PO 04/20/21 17:45 04/20/21 17:46 DC 04/20/21 17:42 (AIXA MALAVE) Allergies: Allergies: Allergies Coded Allergies Type Severity Reaction Last Updated Verified [id number] Reductase Inhibitor Allergy Unknown 04/13/21 Yes azithromycin Allergy Unknown 04/13/21 Yes (AIXA MALAVE) Physical Exam: PE: Constitutional: Well developed, well nourished, no acute distress, chronically ill-appearing. HENT: Normocephalic, atraumatic, bilateral external ears normal, nose normal. Eyes: EOMI, conjunctival pallor, no discharge. Neck: Normal range of motion, no stridor. Abdomen: Bowel sounds normal, soft, no tenderness, no masses, no pulsatile masses. Skin: Pallor appreciated. Skin otherwise warm, dry, no erythema, no rash. Back: No tenderness, no CVA tenderness. Extremities: Palmar and nailbed pallor appreciated, no tenderness, no cyanosis, no clubbing, ROM intact, no edema. Left lower leg amputation with prosthesis noted. Neurologic: Alert and oriented x4, no focal deficits noted. (AIXA MALAVE) Current Patient Data: Labs: Laboratory Tests Test 04/20/21 13:26 White Blood Count 5.9 x10^3/uL (4.0-11.0) Red Blood Count 2.86 x10^6/uL (3.50-5.40) L Hemoglobin 7.7 g/dL (12.0-15.5) L Hematocrit 25.0 % (36.0-47.0) L Mean Corpuscular Volume 88 fL (79-100) Mean Corpuscular Hemoglobin 27 pg (25-35) Mean Corpuscular Hemoglobin Concent 31 g/dL (31-37) Red Cell Distribution Width 18.0 % (11.5-14.5) H Platelet Count 177 x10^3/uL (140-400) Neutrophils (%) (Auto) 76 % (31-73) H Lymphocytes (%) (Auto) 11 % (24-48) L Monocytes (%) (Auto) 6 % (0-9) Eosinophils (%) (Auto) 6 % (0-3) H Basophils (%) (Auto) 1 % (0-3) Neutrophils # (Auto) 4.5 x10^3uL (1.8-7.7) Lymphocytes # (Auto) 0.7 x10^3/uL (1.0-4.8) L Monocytes # (Auto) 0.4 x10^3/uL (0.0-1.1) Eosinophils # (Auto) 0.3 x10^3/uL (0.0-0.7) Basophils # (Auto) 0.1 x10^3/uL (0.0-0.2) Sodium Level 137 mmol/L (136-145) Potassium Level 4.0 mmol/L (3.5-5.1) Chloride Level 101 mmol/L (98-107) Carbon Dioxide Level 24 mmol/L (21-32) Anion Gap 12 (6-14) Blood Urea Nitrogen 61 mg/dL (7-20) H Creatinine 3.2 mg/dL (0.6-1.0) H Estimated GFR (Cockcroft-Gault) 14.5 BUN/Creatinine Ratio 19 (6-20) Glucose Level 158 mg/dL (70-99) H Calcium Level 8.3 mg/dL (8.5-10.1) L Total Bilirubin 0.8 mg/dL (0.2-1.0) Aspartate Amino Transferase (AST) 41 U/L (15-37) H Alanine Aminotransferase (ALT) 26 U/L (14-59) Alkaline Phosphatase 118 U/L (46-116) H Total Protein 6.7 g/dL (6.4-8.2) Albumin 2.8 g/dL (3.4-5.0) L Albumin/Globulin Ratio 0.7 (1.0-1.7) L Vital Signs: Vital Signs Date Time Temp Pulse Resp B/P (MAP) Pulse Ox O2 Delivery O2 Flow Rate FiO2 04/20/21 17:59 97.9 69 16 106/61 04/20/21 17:54 68 16 109/47 04/20/21 17:49 67 16 114/49 04/20/21 17:44 97.9 67 15 112/47 04/20/21 17:42 16 92 04/20/21 17:38 72 22 105/61 04/20/21 17:33 82 16 99/53 04/20/21 17:26 97.8 65 16 115/52 04/20/21 15:30 63 16 102/43 (62) 93 Room Air 04/20/21 14:30 65 16 105/53 (70) 92 Room Air 04/20/21 13:13 97.6 83 16 134/46 (75) 100 Room Air (AIXA MALAVE) Heart Score: C/O Chest Pain: No (AIXA MALAVE) Course & Med Decision Making: Course & Med Decision Making Pertinent Labs and Imaging studies reviewed. (See chart for details) Patient is a 66-year-old female presenting with symptomatic anemia, confirmed by outpatient lab draw. She was advised to go to the emergency department for blood transfusion. Work-up today will include labs. Blood transfusion pending H&H result. Patient has symptomatic anemia less than 8 without a confirmed source of bleeding. Patient also has evidence of acute on chronic kidney injury. Spoke with hospitalist Dr. Melton at [facility], who gladly accepts patient for transfer for higher level of care. Patient and her daughter at bedside are agreeable to transfer. Patient will receive 1 unit packed red blood cells prior to transfer. Patient requested a dose of Benadryl prior to blood transfusion, as she has had transfusion reactions in the past. Order was placed and blood was given without complication. Still waiting bed assignment at [facility]. (AIXA MALAVE) Dragon Disclaimer: Dragon Disclaimer: This electronic medical record was generated, in whole or in part, using a voice recognition dictation system. (AIXA MALAVE) Departure Departure: Impression: Primary Impression: Symptomatic anemia Additional Impression: Acute kidney injury superimposed on CKD Disposition: 02 [facility]ORT [facility]M [facility] Admitting Physician: Other (Geronimo) (AIXA MALAVE) Condition: GUARDED Referrals: DEEPTI SOL (PCP) Attending Signature Attending Signature I have participated in the care of this patient and I have reviewed and agree with all pertinent clinical information above including history, exam, and recommendations. (ISHAN BLAND MD) Dragon Disclaimer This chart was dictated in whole or in part using Voice Recognition software in a busy, high-work load, and often noisy Emergency Department environment. It may contain unintended and wholly unrecognized errors or omissions. (ISHAN BLAND MD) AIXA MALAVE Apr 20, 2021 14:32 ISHAN BLAND MD Apr 22, 2021 18:19
[2021-04-20 14:46] LABS: FECAL OB PT NEGATIVE (NEG)
[2021-04-20] MEDS ORDERED: HYDROmorphone PF 1 MG/ML DISP.SYRIN IVP ONE (16:00)
[2021-04-20] MEDS ORDERED: ONDANSETRON PF 4 MG/2 ML VIAL. IVP ONE ×2 (16:00→20:30)
[2021-04-20] MEDS ORDERED: diphenhydrAMINE 50 MG/ML VIAL IVP ONE (17:15)
[2021-04-20] MEDS ORDERED: HYDROcodone/APAP 5/325MG 1 TAB TABLET PO ONE (17:45)
[2021-04-20] MEDS ORDERED: ACETAMINOPHEN 500 MG TABLET PO ONE ×2 (19:33→19:45)
[2021-04-20] MEDS ORDERED: IV NORMAL SALINE 1,000ML 1,000 ML IV ONE (19:45)
== END 2021-04-20 21:16 | disposition short-term general hospital (02) ==
LOC: ER 13:10
DX: N17.9 Acute kidney failure, unspecified (principal); E11.22 Type 2 diabetes mellitus with diabetic chronic kidney disease; N18.9 Chronic kidney disease, unspecified; D64.9 Anemia, unspecified; I25.810 Atherosclerosis of coronary artery bypass graft(s) without angina pectoris; Z20.822 Contact with and (suspected) exposure to COVID-19; Z87.891 Personal history of nicotine dependence; Z88.1 Allergy status to other antibiotic agents; Z88.8 Allergy status to other drugs, medicaments and biological substances
CPT/HCPCS: 36415; 36430; 80053; 82274; 85025; 85610; 85730; 86850; 86900; 86901; 86920; 87426; 96361; 96374; 96375; 99285; C9803; J1200; J2405; J7030; J7120; P9016; U0003